=== PATIENT | female | born 1980 | race Caucasian/White ===

== ENCOUNTER → 2018-01-15 | Outpatient (CLI) | payer OTHER ==
[~2018-01-15] MED LIST: Augmentin 875-1 EACH PO; CYCL10 PO; HYDACE5 PO; HYDACE5325 PO; HYDR1TAB94 PO; IBUP600 PO; IBUP800 PO; META800 PO; NAPR500EC PO; NAPR550 PO; OXYACE5T PO; PROM25 PO; Prenatabs Rx T1 EACH PO; TRAM50 PO; Ultram50 MG PO; Valium5 MG PO
== END | disposition home or self-care (01) ==
LOC: LAB 12:49 → EDSTATUS 12:57
PROVIDERS: Obstetrics & Gynecology
DX: Z36.9 Encounter for antenatal screening, unspecified (principal)
CPT/HCPCS: 84156

== ENCOUNTER 2018-02-17 05:42 | Inpatient (IN) | payer OTHER ==
[~2018-02-17] VITALS: Ht 165.1 cm; Wt 82.0 kg
[2018-02-17 06:24] LABS: BASOPHILS ABSOLUTE AUTO 0.01 K/mm3 (0.00-0.23); BASOPHILS PERCENT AUTO 0 % (0-2); EOSINOPHILS ABSOLUTE AUTO 0.05 K/mm3 (0.00-0.68); EOSINOPHILS PERCENT AUTO 1 % (0-6); Hematocrit 30.1 % (33.0-51.0); Hemoglobin 9.7 g/dL (11.5-16.0); IMMATURE GRAN ABSOLUTE AUTO 0.05 K/mm3 (0.00-0.10); IMMATURE GRAN PERCENT AUTO 1 % (0-1); LYMPHOCYTES ABSOLUTE AUTO 1.58 K/mm3 (0.84-5.20); LYMPHOCYTES PERCENT AUTO 28 % (21-46); MONOCYTES ABSOLUTE AUTO 0.61 K/mm3 (0.16-1.47); MONOCYTES PERCENT AUTO 11 % (4-13); Mean Corpuscular HGB 27.1 pg (26.0-34.0); Mean Corpuscular HGB Conc 32.2 g/dL (31.5-36.5); Mean Corpuscular Volume 84 fL (80-100); Mean Platelet Volume 11.5 fL (9.1-12.4); NEUTROPHILS ABSOLUTE AUTO 3.31 K/mm3 (1.96-9.15); NEUTROPHILS PERCENT AUTO 59 % (41-73); Platelet Count 199 K/mm3 (150-400); RDW Coefficient Variation 13.1 % (11.7-14.2); RDW Standard Deviation 40.1 fL (35.1-46.3); Red Blood Cell Count 3.58 M/mm3 (3.80-5.20); White Blood Cell Count 5.61 K/mm3 (4.00-11.30)
[2018-02-18 05:46] LABS: Hematocrit 31.1 % (33.0-51.0); Hemoglobin 10.3 g/dL (11.5-16.0); Mean Corpuscular HGB 28.3 pg (26.0-34.0); Mean Corpuscular HGB Conc 33.1 g/dL (31.5-36.5); Mean Corpuscular Volume 85 fL (80-100); Mean Platelet Volume 11.3 fL (9.1-12.4); Platelet Count 194 K/mm3 (150-400); RDW Coefficient Variation 13.1 % (11.7-14.2); Red Blood Cell Count 3.64 M/mm3 (3.80-5.20); White Blood Cell Count 10.71 K/mm3 (4.00-11.30)
[2018-02-18] MEDS ORDERED: IBUP800 (12:18)
[2018-02-18] MEDS ORDERED: OXYC5 (12:18)
== END 2018-02-18 13:24 | disposition home or self-care (01) | DRG 775 ==
LOC: BC 05:42
PROVIDERS: Obstetrics & Gynecology
PROC: 10E0XZZ Delivery of Products of Conception, External Approach (ICD-10-PCS; principal; 2018-02-17)
PROC: 0KQM0ZZ Repair Perineum Muscle, Open Approach (ICD-10-PCS; 2018-02-17)
PROC: 3E033VJ Introduction of Other Hormone into Peripheral Vein, Percutaneous Approach (ICD-10-PCS; 2018-02-17)
PROC: 10907ZC Drainage of Amniotic Fluid, Therapeutic from Products of Conception, Via Natural or Artificial Opening (ICD-10-PCS; 2018-02-17)
PROC: 00HU33Z Insertion of Infusion Device into Spinal Canal, Percutaneous Approach (ICD-10-PCS; 2018-02-17)
PROC: 3E0R3BZ Introduction of Anesthetic Agent into Spinal Canal, Percutaneous Approach (ICD-10-PCS; 2018-02-17)
DX: O48.0 Post-term pregnancy (principal); O70.1 Second degree perineal laceration during delivery; Z3A.41 41 weeks gestation of pregnancy; Z37.0 Single live birth; Z87.891 Personal history of nicotine dependence
CPT/HCPCS: 36415; 51702; 85025; 85027; J1885; J2001; J2590; J7120

== ENCOUNTER 2019-02-08 14:55 | Emergency (ER) | payer OTHER ==
[~2019-02-08] VITALS: Ht 165.1 cm; Wt 68.0 kg
[~2019-02-08 14:55] MED LIST changes: +IBUP800; +OXYC5
[2019-02-08 15:57] LABS: BASOPHILS ABSOLUTE AUTO 0.02 K/mm3 (0.00-0.23); BASOPHILS PERCENT AUTO 1 % (0-2); EOSINOPHILS ABSOLUTE AUTO 0.08 K/mm3 (0.00-0.68); EOSINOPHILS PERCENT AUTO 2 % (0-6); Hematocrit 35.9 % (33.0-51.0); Hemoglobin 12.4 g/dL (11.5-16.0); IMMATURE GRAN ABSOLUTE AUTO 0.01 K/mm3 (0.00-0.10); IMMATURE GRAN PERCENT AUTO 0 % (0-1); LYMPHOCYTES ABSOLUTE AUTO 1.82 K/mm3 (0.84-5.20); LYMPHOCYTES PERCENT AUTO 41 % (21-46); MONOCYTES ABSOLUTE AUTO 0.38 K/mm3 (0.16-1.47); MONOCYTES PERCENT AUTO 9 % (4-13); Mean Corpuscular HGB 34.5 pg (26.0-34.0); Mean Corpuscular HGB Conc 34.5 g/dL (31.5-36.5); Mean Corpuscular Volume 100 fL (80-100); Mean Platelet Volume 10.3 fL (9.1-12.4); NEUTROPHILS ABSOLUTE AUTO 2.13 K/mm3 (1.96-9.15); NEUTROPHILS PERCENT AUTO 48 % (41-73); Platelet Count 187 K/mm3 (150-400); Red Blood Cell Count 3.59 M/mm3 (3.80-5.20); White Blood Cell Count 4.44 K/mm3 (4.00-11.30)
[2019-02-08 16:14] LABS: Alanine Aminotransfer (ALT/SGP 126 U/L (12-78); Albumin, Blood 4.1 g/dL (3.4-5.0); Albumin/Globulin Ratio 1.3 (0.8-1.8); Alk Phos 56 U/L (50-136); Anion Gap 11 mmol/L (6-16); Aspartate Aminotrans (AST/SGOT 106 U/L (12-37); Bilirubin, Total 0.3 mg/dL (0.1-1.0); Blood Urea Nitrogen 7 mg/dL (8-24); Bun/Creatinine Ratio 10.6 (12.0-20.0); CO2, Blood 27 mmol/L (21-32); Calcium, Blood 8.9 mg/dL (8.5-10.1); Chloride, Blood 102 mmol/L (98-108); Creatinine, Blood 0.66 mg/dL (0.40-1.00); Globulin, Blood 3.2 g/dL (2.2-4.0); Glomerular Filtration Rate >60 (60-); Glucose, Blood 70 mg/dL (70-99); Potassium, Blood 2.8 mmol/L (3.5-5.5); Sodium, Blood 140 mmol/L (136-145); Total Protein, Blood 7.3 g/dL (6.4-8.2)
[2019-02-08] MEDS ORDERED: K-Dur20 MEQ PO (19:12)
[2019-02-08] MEDS ORDERED: ONDA4ODT MM (19:12)
[2019-02-08] MEDS ORDERED: Imitrex25 MG PO (19:12)
== END 2019-02-08 20:07 | disposition home or self-care (01) ==
LOC: ER 14:55
PROVIDERS: Physician Assistant
DX: R51 Headache (principal); E87.6 Hypokalemia
CPT/HCPCS: 36415; 70450; 80053; 85025; 96361; 96374; 96375; 99284-25; J1100; J1200; J1630; J1885; J2765; J7030

== ENCOUNTER 2019-07-03 10:45 | Day surgery (SDC) | payer OTHER ==
[~2019-07-03 10:45] MED LIST changes: +Imitrex25 MG PO; +K-Dur20 MEQ PO; +ONDA4ODT MM
--- NOTE | 2019-07-03 14:34 | NUR ---
patient had moedrate amount of s/s drainage 15 minutes after received pt with a new pad from PACU. called dr gipson, he came to look at pad and wrote a script for methergine. pt had one motrin and one percocet for pain 6/10. Patient up to Ambulate independently. Gait steady. Discharge instructions reviewed with patient. Patient verbalizes understanding. Copy given to patient to take home. Patient States Post-Procedure ride home has been arranged. Discharged via wheelchair to private car for ride home. ALL BELONINGS SENT HOME WITH PATIENT.
== END 2019-07-03 22:52 | disposition home or self-care (01) ==
LOC: ORSCMMR 10:45 → ORD 12:15 → ORSCMMR 22:52
PROVIDERS: Obstetrics & Gynecology
PROC: 0UDB7ZX Extraction of Endometrium, Via Natural or Artificial Opening, Diagnostic (ICD-10-PCS; principal; 2019-07-03 12:15)
DX: O02.1 Missed abortion (principal)
CPT/HCPCS: 86850; 86900; 86901; 88305; J0690; J1100; J2210; J2250; J2370; J2405; J2704; J3010; J7120

== ENCOUNTER 2020-05-17 06:10 | Inpatient (IN) | payer OTHER ==
[~2020-05-17] VITALS: Ht 160 cm; Wt 70.0 kg
[2020-05-17 06:56] LABS: BASOPHILS ABSOLUTE AUTO 0.01 K/mm3 (0.00-0.23); BASOPHILS PERCENT AUTO 0 % (0-2); EOSINOPHILS ABSOLUTE AUTO 0.03 K/mm3 (0.00-0.68); EOSINOPHILS PERCENT AUTO 1 % (0-6); Hematocrit 31.2 % (33.0-51.0); IMMATURE GRAN ABSOLUTE AUTO 0.01 K/mm3 (0.00-0.10); IMMATURE GRAN PERCENT AUTO 0 % (0-1); LYMPHOCYTES ABSOLUTE AUTO 1.21 K/mm3 (0.84-5.20); LYMPHOCYTES PERCENT AUTO 24 % (21-46); MONOCYTES ABSOLUTE AUTO 0.49 K/mm3 (0.16-1.47); MONOCYTES PERCENT AUTO 10 % (4-13); Mean Corpuscular HGB 27.5 pg (26.0-34.0); Mean Corpuscular HGB Conc 32.1 g/dL (31.5-36.5); Mean Corpuscular Volume 86 fL (80-100); Mean Platelet Volume 11.4 fL (9.1-12.4); NEUTROPHILS ABSOLUTE AUTO 3.33 K/mm3 (1.96-9.15); NEUTROPHILS PERCENT AUTO 66 % (41-73); Platelet Count 169 K/mm3 (150-400); RDW Coefficient Variation 12.3 % (11.7-14.2); RDW Standard Deviation 39.3 fL (35.1-46.3); Red Blood Cell Count 3.64 M/mm3 (3.80-5.20); White Blood Cell Count 5.08 K/mm3 (4.00-11.30)
[2020-05-17] MEDS ORDERED: PRENATAL TABLE1 EAC2 PO (07:11)
[2020-05-17] MEDS ORDERED: ONDA4 PO (07:12)
[2020-05-17] MEDS ORDERED: CYCL10 PO (07:12)
[2020-05-17] MEDS ORDERED: DOCU100 PO (07:13)
--- NOTE | 2020-05-17 17:49 | NUR ---
ASSUMED CARE AT 1545 FROM DONNA RN SHIFT SUMMARY PT COMFORTABLE AND RESTING QUIETLY WITH , REPORT TO NOC RN , CALL LIGHT WITH IN REACH.
[2020-05-18 07:31] LABS: BASOPHILS ABSOLUTE AUTO 0.02 K/mm3 (0.00-0.23); BASOPHILS PERCENT AUTO 0 % (0-2); EOSINOPHILS ABSOLUTE AUTO 0.06 K/mm3 (0.00-0.68); EOSINOPHILS PERCENT AUTO 1 % (0-6); Hematocrit 29.9 % (33.0-51.0); Hemoglobin 9.3 g/dL (11.5-16.0); IMMATURE GRAN ABSOLUTE AUTO 0.04 K/mm3 (0.00-0.10); IMMATURE GRAN PERCENT AUTO 1 % (0-1); LYMPHOCYTES ABSOLUTE AUTO 1.29 K/mm3 (0.84-5.20); LYMPHOCYTES PERCENT AUTO 17 % (21-46); MONOCYTES ABSOLUTE AUTO 0.61 K/mm3 (0.16-1.47); MONOCYTES PERCENT AUTO 8 % (4-13); Mean Corpuscular HGB 27.5 pg (26.0-34.0); Mean Corpuscular HGB Conc 31.1 g/dL (31.5-36.5); Mean Corpuscular Volume 89 fL (80-100); Mean Platelet Volume 11.8 fL (9.1-12.4); NEUTROPHILS PERCENT AUTO 74 % (41-73); Platelet Count 150 K/mm3 (150-400); RDW Coefficient Variation 12.5 % (11.7-14.2); Red Blood Cell Count 3.38 M/mm3 (3.80-5.20); White Blood Cell Count 7.82 K/mm3 (4.00-11.30)
[2020-05-18] MEDS ORDERED: Percocet 5-3251 EACH PO (13:55)
[2020-05-18] MEDS ORDERED: IBU800 MG PO (13:55)
--- NOTE | 2020-05-18 14:47 | NUR ---
DISCHARGE PT DISCHARGING STABLE AND D/C HOME, PT D/C WITH PERSCRIPTIONS, DISCHARGE INSTRUCTION REVIEWD AND PT HAD NO FURTHER QUESTIONS, PT WILL CALL TO [facility]- FOLLOW UP [facility] PROVIDER,
--- NOTE | 2020-05-18 14:54 | NUR ---
PT DECLINED MMR AND FLU VACCINE AT D/C.
== END 2020-05-18 14:30 | disposition home or self-care (01) | DRG 807 ==
LOC: BC 06:10 → OBS 06:10 → BC 06:16
PROVIDERS: ADMIT Obstetrics & Gynecology
PROC: 10E0XZZ Delivery of Products of Conception, External Approach (ICD-10-PCS; principal; 2020-05-17)
PROC: 3E033VJ Introduction of Other Hormone into Peripheral Vein, Percutaneous Approach (ICD-10-PCS; 2020-05-17)
PROC: 10907ZC Drainage of Amniotic Fluid, Therapeutic from Products of Conception, Via Natural or Artificial Opening (ICD-10-PCS; 2020-05-17)
PROC: 00HU33Z Insertion of Infusion Device into Spinal Canal, Percutaneous Approach (ICD-10-PCS; 2020-05-17)
PROC: 3E0R3BZ Introduction of Anesthetic Agent into Spinal Canal, Percutaneous Approach (ICD-10-PCS; 2020-05-17)
DX: O48.0 Post-term pregnancy (principal); Z37.0 Single live birth; O99.02 Anemia complicating childbirth; D50.9 Iron deficiency anemia, unspecified; Z3A.40 40 weeks gestation of pregnancy
CPT/HCPCS: 36415; 85025; A9270; J1885; J2001; J2210; J2590; J3010; J7120; U0004

== ENCOUNTER 2020-10-25 06:05 | Day surgery (SDC) | payer OTHER ==
[~2020-10-25] VITALS: Ht 160 cm; Wt 61.4 kg
[~2020-10-25 06:05] MED LIST changes: +DOCU100 PO; +IBU800 MG PO; +MISO200 PO; +ONDA4 PO; +PRAHYD1AE; +PRENATAL TABLE1 EAC2 PO; +Percocet 5-3251 EACH PO
== END 2020-10-25 09:55 | disposition home or self-care (01) ==
LOC: ORSCSDS 06:05
PROVIDERS: Obstetrics & Gynecology
PROC: 0UT74ZZ Resection of Bilateral Fallopian Tubes, Percutaneous Endoscopic Approach (ICD-10-PCS; principal; 2020-10-25 07:30)
DX: Z30.2 Encounter for sterilization (principal); Q50.5 Embryonic cyst of broad ligament; N80.3 Endometriosis of pelvic peritoneum
CPT/HCPCS: 88302; A9270; J0171; J0690; J1100; J1885; J2405; J2704; J3010; J7120

== ENCOUNTER 2022-01-06 19:01 | Emergency (ER) | payer OTHER ==
[~2022-01-06] VITALS: Ht 165.1 cm; Wt 70.3 kg
[~2022-01-06 19:01] MED LIST changes: +Celexa20 MG PO; +PROC25S PR; +Prochlorperazin10 MG PO
[2022-01-06] MEDS ORDERED: CEPH500 PO (19:28)
[2022-01-06] MEDS ORDERED: IMITREX100 MG PO (19:29)
[2022-01-06 19:41] LABS: BASOPHILS ABSOLUTE AUTO 0.02 K/mm3 (0.00-0.23); BASOPHILS PERCENT AUTO 1 % (0-2); EOSINOPHILS ABSOLUTE AUTO 0.02 K/mm3 (0.00-0.68); EOSINOPHILS PERCENT AUTO 1 % (0-6); Hematocrit 40.1 % (33.0-51.0); Hemoglobin 13.7 g/dL (11.5-16.0); IMMATURE GRAN ABSOLUTE AUTO 0.01 K/mm3 (0.00-0.10); IMMATURE GRAN PERCENT AUTO 0 % (0-1); LYMPHOCYTES ABSOLUTE AUTO 1.51 K/mm3 (0.84-5.20); LYMPHOCYTES PERCENT AUTO 43 % (21-46); MONOCYTES ABSOLUTE AUTO 0.39 K/mm3 (0.16-1.47); MONOCYTES PERCENT AUTO 11 % (4-13); Mean Corpuscular HGB 31.9 pg (26.0-34.0); Mean Corpuscular HGB Conc 34.2 g/dL (31.5-36.5); Mean Corpuscular Volume 93 fL (80-100); Mean Platelet Volume 9.8 fL (9.1-12.4); NEUTROPHILS PERCENT AUTO 45 % (41-73); Platelet Count 230 K/mm3 (150-400); RDW Coefficient Variation 16.7 % (11.7-14.2); RDW Standard Deviation 56.6 fL (35.1-46.3); White Blood Cell Count 3.55 K/mm3 (4.00-11.30)
[2022-01-06 19:53] LABS: Albumin, Blood 3.1 g/dL (3.4-5.0); Albumin/Globulin Ratio 0.9 (0.8-1.8); Bilirubin, Total 0.4 mg/dL (0.1-1.0); Bun/Creatinine Ratio 12.4 (12.0-20.0); Calcium, Blood 7.8 mg/dL (8.5-10.1); Creatinine, Blood 0.73 mg/dL (0.40-1.00); Globulin, Blood 3.3 g/dL (2.2-4.0); Potassium, Blood 3.8 mmol/L (3.5-5.5); Total Protein, Blood 6.4 g/dL (6.4-8.2)
[2022-01-06 22:07] LABS: Thyroid Stimulating Hormone 0.638 uIU/mL (0.360-4.800)
[2022-01-06 22:37] LABS: Influenza A, PCR NEGATIVE (NEGATIVE); Influenza B, PCR NEGATIVE (NEGATIVE); Resp Syncytial Virus, PCR NEGATIVE (NEGATIVE); SARS-Cov-2 (COVID-19) PCR, MMC NEGATIVE (NEGATIVE)
[2022-01-06] MEDS ORDERED: NITR100CA PO (23:07)
[2022-01-06] MEDS ORDERED: METO10 PO (23:54)
[2022-01-06] MEDS ORDERED: PROM12.5S PR (23:54)
== END 2022-01-07 00:23 | disposition home or self-care (01) ==
LOC: ER 19:01
PROVIDERS: Emergency Medicine; Student in an Organized Health Care Education/Training Program
DX: I95.1 Orthostatic hypotension (principal); F10.229 Alcohol dependence with intoxication, unspecified; E83.51 Hypocalcemia; R11.2 Nausea with vomiting, unspecified; N39.0 Urinary tract infection, site not specified; B96.20 Unspecified Escherichia coli [E. coli] as the cause of diseases classified elsewhere; Z88.6 Allergy status to analgesic agent; Z88.5 Allergy status to narcotic agent; Z88.8 Allergy status to other drugs, medicaments and biological substances; Z79.899 Other long term (current) drug therapy; Z87.891 Personal history of nicotine dependence; Z20.822 Contact with and (suspected) exposure to COVID-19
CPT/HCPCS: 0241U; 80053; 82330; 83735; 84443; 85025; 93005; 93010; A9270; G0480; J0610; J1790; J2765; J7120